=== PATIENT | female | born 1970 | race Caucasian/White ===

== ENCOUNTER → 2018-12-17 | Outpatient (CLI) | payer BC ==
[~2018-12-17] MED LIST: CETI10TA17 PO; CYCL10TA9 PO; IBP800T PO; OXYC-309 PO; PRD20T PO; TRIA16.5 NSEACH
--- NOTE | 2018-12-17 12:37 | Diagnostic Imaging Report ---
PROCEDURE: US Non-OB pelvis comp/trans. TECHNIQUE: Multiple realtime grayscale images were obtained of the pelvis in various projections endovaginally. Transabdominal imaging was also performed. INDICATION: Irregular menses. FINDINGS: The uterus measures 9.8 x 6.1 x 5.3 cm. Endometrium is 5 mm in thickness. Myometrium does show generalized heterogeneity. No discrete mass is seen. Right ovary measures 2.9 x 2.0 x 2.1 cm, and the left ovary measures 3.0 x 2.4 x 3.6 cm. No definite adnexal mass or free fluid is seen. IMPRESSION: Myometrial heterogeneity. This can be seen with adenomyosis or diffuse fibroids. No other significant abnormality is detected. Dictated by: Dictated on workstation # [id number]
--- NOTE | 2018-12-18 21:17 | Diagnostic Imaging Report ---
INDICATION: Routine screening. COMPARISON: Prior study from 09/01/2014 and 04/28/2013. EXAMINATION: 2D and 3D bilateral screening mammography was performed with CAD. The current study was also evaluated with a Computer Aided Detection (CAD) system. FINDINGS: Scattered fibroglandular densities are identified, bilaterally. The parenchymal pattern is stable. No mass or malignant appearing microcalcifications are seen. The axillae are unremarkable. IMPRESSION: No mammographic features suspicious for malignancy are identified. ACR BI-RADS Category 2: Benign findings. Result letter will be mailed to the patient. Note: At least 10% of breast cancer is not imaged by mammography. Dictated by: Dictated on workstation # [id number]
== END ==
LOC: RAD 10:17
PROVIDERS: ATTEND Obstetrics & Gynecology
DX: Z12.31 Encounter for screening mammogram for malignant neoplasm of breast (principal); N92.6 Irregular menstruation, unspecified; Z80.41 Family history of malignant neoplasm of ovary; Z68.42 Body mass index [BMI] 45.0-49.9, adult
CPT/HCPCS: 76830; 76856; 77067

== ENCOUNTER 2018-12-31 13:28 | Emergency (ER) | payer BC ==
[~2018-12-31] VITALS: Ht 165.1 cm; Wt 133.8 kg
--- NOTE | 2018-12-31 14:15 | NUR ---
Errol palacios in [facility] - 12/31/18 at 1416 by PMCCLURE TO ROOM COFFEE GIVEN
--- NOTE | 2018-12-31 14:16 | NUR ---
TO ROOM NO NEW C/O AT THIS TIME.
[2018-12-31] MEDS ORDERED: FAMOTIDINE 20 MG (PEPCID) TABLET PO STA (14:31)
--- NOTE | 2018-12-31 14:37 | ED Chest Pain ---
General Chief Complaint: Cardiac/General Problems Stated Complaint: HEART RATE ISSUES Nursing Triage Note: Patient advises that she has been experiencing her heart racing x 2 days accompanied with shortness of breath that has become progressively worse. She denies pain but states just uncomfortable. Nursing Sepsis Screen: No Definite Risk Source: patient, other Exam Limitations: no limitations History of Present Illness Date Seen by Provider: December 31, 2018 Time Seen by Provider: 14:21 Initial Comments The patient presents to ER by private conveyance with his significant other chief complaint that last night around 10:00 she had laid down to bed and started having some tightness pressure discomfort around under both breasts wrapping around towards her back. She does have some burping and feeling of distention. She ate dinner at 7:00. She said she just went to sleep did not take anything for it. In the morning when she woke up it was still there but not as bad. Progressively gotten worse the last hour or so so she decided to come and get checked out. No history of heart disease. She does have acid reflux but does not take anything for it routinely. No nausea or vomiting. No diarrhea or constipation. She had an gynecologic surgery years ago. No significant family history. She only occasionally smokes about a pack every 2 weeks. Drinks on weekends and denies recreational drug use. She used to have high blood pressure problems but in the past several years Dr. Arevalo has not had her medicines. She had a cholesterol normal. She is prediabetic. Allergies and Home Medications Allergies Coded Allergies: hydrocodone (Unverified Adverse Reaction, Unknown, HALLUCINATIONS, 12/31/18) Home Medications Cyclobenzaprine HCl 10 Mg Tablet, 10 MG PO Q8H PRN for SPASMS Prescribed by: NEFTALI DAY on 07/19/151748 Prednisone 20 Mg Tab, 40 MG PO DAILY Prescribed by: NEFTALI DAY on 07/19/151748 Patient Home Medication List Home Medication List Reviewed: Yes Review of Systems Review of Systems Constitutional: No chills, No diaphoresis EENTM: No Blurred Vision, No Double Vision Respiratory: Denies Cough, Denies Shortness of Air Cardiovascular: See HPI, Chest Pain; Denies Lightheadedness Gastrointestinal: Denies Diarrhea, Denies Nausea Genitourinary: Denies Burning, Denies Discharge Past Qppbfjk-Ribehd-Qrjmtf Hx Patient Social History Alcohol Use: Occasionally Uses Recreational Drug Use: No Smoking Status: Current Someday Smoker Type Used: Cigarettes Recent Foreign Travel: No Contact w/Someone Who Travel: No Recent Infectious Disease Expo: No Past Medical History Surgeries: Yes (FOOT SX X2 , BACK SX) Respiratory: No Cardiac: No Neurological: No 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 oz. 133.836653jc; BMI Method:Stated General Appearance: No Apparent Distress, WD/WN HEENT: PERRL/EOMI, TMs Normal, Normal ENT Inspection, Pharynx Normal, Moist Mucous Membranes Neck: Full Range of Motion, Normal Inspection, Non Tender, Supple Respiratory: Chest Non Tender, Lungs Clear, Normal Breath Sounds, No Accessory Muscle Use, No Respiratory Distress Cardiovascular: Regular Rate, Rhythm, No Edema, Normal Peripheral Pulses Gastrointestinal: Normal Bowel Sounds, Soft, Tenderness (mild epigastric tenderness) Extremity: Normal Capillary Refill, Normal Inspection Neurologic/Psychiatric: Alert, Oriented x3 Progress/Results/Core Measures Results/Orders Lab Results Laboratory Tests Test 12/31/18 13:54 12/31/18 16:28 Range/Units White Blood Count 8.2 4.3-11.0 10^3/uL Red Blood Count 4.55 4.35-5.85 10^6/uL Hemoglobin 14.0 11.5-16.0 G/DL Hematocrit 41 35-52 % Mean Corpuscular Volume 91 80-99 FL Mean Corpuscular Hemoglobin 31 25-34 PG Mean Corpuscular Hemoglobin Concent 34 32-36 G/DL Red Cell Distribution Width 13.5 10.0-14.5 % Platelet Count 223 130-400 10^3/uL Mean Platelet Volume 11.2 H 7.4-10.4 FL Neutrophils (%) (Auto) 62 42-75 % Lymphocytes (%) (Auto) 28 12-44 % Monocytes (%) (Auto) 6 0-12 % Eosinophils (%) (Auto) 4 0-10 % Basophils (%) (Auto) 1 0-10 % Neutrophils # (Auto) 5.0 1.8-7.8 X 10^3 Lymphocytes # (Auto) 2.3 1.0-4.0 X 10^3 Monocytes # (Auto) 0.5 0.0-1.0 X 10^3 Eosinophils # (Auto) 0.4 H 0.0-0.3 10^3/uL Basophils # (Auto) 0.1 0.0-0.1 10^3/uL Prothrombin Time 12.5 12.2-14.7 SEC INR Comment 0.9 0.8-1.4 Activated Partial Thromboplast Time 29 24-35 SEC Sodium Level 140 135-145 MMOL/L Potassium Level 3.9 3.6-5.0 MMOL/L Chloride Level 106 98-107 MMOL/L Carbon Dioxide Level 21 21-32 MMOL/L Anion Gap 13 5-14 MMOL/L Blood Urea Nitrogen 15 7-18 MG/DL Creatinine 0.92 0.60-1.30 MG/DL Estimat Glomerular Filtration Rate > 60 BUN/Creatinine Ratio 16 Glucose Level 117 H 70-105 MG/DL Calcium Level 9.1 8.5-10.1 MG/DL Corrected Calcium 9.2 8.5-10.1 MG/DL Magnesium Level 1.7 L 1.8-2.4 MG/DL Total Bilirubin 0.6 0.1-1.0 MG/DL Aspartate Amino Transf (AST/SGOT) 18 5-34 U/L Alanine Aminotransferase (ALT/SGPT) 23 0-55 U/L Alkaline Phosphatase 89 40-136 U/L Myoglobin 32.4 10.0-92.0 NG/ML Troponin I < 0.028 < 0.028 <0.028 NG/ML B-Type Natriuretic Peptide 45.0 <100.0 PG/ML Total Protein 7.1 6.4-8.2 GM/DL Albumin 3.9 3.2-4.5 GM/DL Lipase 22 8-78 U/L My Orders Orders - SHAILA MARTINEZ Cbc With Automated Diff (12/31/18 14:31) Magnesium (12/31/18 14:31) Chest 1 View, Ap/Pa Only (12/31/18 14:31) Ekg Tracing (12/31/18 14:31) Cardiac Profile 1 (12/31/18 14:31) Comprehensive Metabolic Panel (12/31/18 14:31) Myoglobin Serum (12/31/18 14:31) Protime With Inr (12/31/18 14:31) Partial Thromboplastin Time (12/31/18 14:31) O2 (12/31/18 14:31) Monitor-Rhythm Ecg Trace Only (12/31/18 14:31) Lipid Panel (01/01/19 06:00) Ed Iv/Invasive Line Start (12/31/18 14:31) Lipase (12/31/18 14:31) BNP (12/31/18 14:31) Aspirin Chewable Tablet (Baby Aspirin Ch (12/31/18 14:45) Lidocaine 2% Viscous 15 Ml (Xylocaine Vi (12/31/18 14:45) Famotidine Tablet (Pepcid Tablet) (12/31/18 14:31) Antacid Suspension (Mylanta Suspension (12/31/18 14:45) Troponin I (12/31/18 16:14) Medications Given in ED Current Medications Medications Dose Ordered Sig/Anshu Route Start Time Stop Time Status Last Admin Dose Admin Al Hydrox/Mg Hydrox/Simethicone 30 ml ONCE ONCE PO 12/31/18 14:45 12/31/18 14:46 DC 12/31/18 15:07 30 ML Aspirin 324 mg ONCE ONCE PO 12/31/18 14:45 12/31/18 14:46 DC 12/31/18 15:06 324 MG Lidocaine HCl 15 ml ONCE ONCE PO 12/31/18 14:45 12/31/18 14:46 DC 12/31/18 15:07 15 ML Vital Signs/I&O 12/31/18 13:56 Pulse 84 Resp 18 B/P (MAP) 142/93 (109) Pulse Ox 99 O2 Delivery Room Air Blood Pressure Mean: 109 Progress Progress Note : Time: 17:49 Progress Note Suspect Some Underlying Dysrhythmia Never Showed up on the Patient Was on Telemetry. The Delta Troponin Was Still Negative. EKG Unchanged. We Will Have Her Follow-Up with Dr. Harkins. Initial ECG Impression Date: December 31, 2018 Initial ECG Impression Time: 13:51 Initial ECG Rate: 78 Initial ECG Rhythm: Normal Sinus Initial ECG Intervals: Normal Initial ECG Impression: Normal Initial ECG Comparisson: No Previous ECG Available Comment No ST elevation or depression. Diagnostic Imaging Diagonstic Imaging: Xray Plain Films/CT/US/NM/MRI: chest Comments NAME: VAUGHN REILLY [facility] REC#: [id number] PHYSICIAN: SHAILA MARTINEZ MD CC: SVETLANA OBRIEN MD; SHAILA MARTINEZ Page 1 of 1 RADIOLOGY REPORT [facility] [place] [place] CC: SVETLANA OBRIEN MD; SHAILA MARTINEZ Page 1 of 1 RADIOLOGY REPORT NAME: VAUGHN REILLY [facility] REC#: [id number] PT STATUS: REG ER : 1970 PHYSICIAN: SHAILA MARTINEZ MD ADMIT DATE: 12/31/18/ER Signed Date of Exam: 12/31/18 CHEST 1 VIEW, AP/PA ONLY INDICATION: Tachycardia and shortness of breath. Frontal chest obtained at 03:16 p.m. There is no prior study for comparison. Heart is normal in size. Mediastinal silhouette appears unremarkable. The lungs are clear. There is no pneumothorax or pleural fluid. IMPRESSION: No acute process in the chest. Dictated by: Dictated on workstation # [id number] Dict: 12/31/18 1535 Trans: 12/31/18 1601 Interpreted by: SVETLANA OBRIEN MD Electronically signed by: SVETLANA OBRIEN MD 12/31/18 1601 Reviewed: Reviewed by Me Departure Impression Primary Impression: Rapid palpitations Additional Impression: Chest tightness or pressure Disposition: 01 HOME, SELF-CARE Condition: Stable Departure-Patient Inst. Decision time for Depature: 17:51 Referrals: OLAYINKA HARKINS MD, JOHN D MD (PCP/Family) Primary Care Physician Patient Instructions: Palpitations Add. Discharge Instructions: Call Dr. Harkins's clinic tomorrow and request an appointment this week or early next week. If your palpitations return and do not go away or accompanied by chest pain, chest pressure, sweats nausea or other worrisome symptoms please return to the nearest ER. All discharge instructions reviewed with patient and/or family. Voiced understanding. Copy Copies To 1: OLAYINKA HARKINS MD, TITUS J December 31, 2018 14:36
[2018-12-31 14:39] LABS: BASOPHILS # (AUTO) 0.1 10^3/uL (0.0-0.1); BASOPHILS % (AUTO) 1 % (0-10); EOSINOPHILS # (AUTO) 0.4 10^3/uL (0.0-0.3); EOSINOPHILS % (AUTO) 4 % (0-10); HEMATOCRIT 41 % (35-52); LYMPHOCYTES # (AUTO) 2.3 X 10^3 (1.0-4.0); LYMPHOCYTES % (AUTO) 28 % (12-44); MEAN CORPUSCULAR HEMOGLOBIN 31 PG (25-34); MEAN CORPUSCULAR HGB CONC 34 G/DL (32-36); MEAN CORPUSCULAR VOLUME 91 FL (80-99); MEAN PLATELET VOLUME 11.2 FL (7.4-10.4); MONOCYTES # (AUTO) 0.5 X 10^3 (0.0-1.0); MONOCYTES % (AUTO) 6 % (0-12); NEUTROPHILS % (AUTO) 62 % (42-75); PLATELET COUNT 223 10^3/uL (130-400); RED CELL DISTRIBUTION WIDTH 13.5 % (10.0-14.5); WHITE BLOOD COUNT 8.2 10^3/uL (4.3-11.0)
[2018-12-31] MEDS ORDERED: LIDOCAINE 2% VISCOUS 15 ML UDC PO ONE (14:45)
[2018-12-31] MEDS ORDERED: ASPIRIN 81 MG CHEW (CHILDREN'S ASA) PO ONE (14:45)
[2018-12-31] MEDS ORDERED: ANTACID SUSP 30 ML UDC (MYLANTA) PO ONE (14:45)
[2018-12-31 14:51] LABS: ALANINE AMINOTRANSFERASE 23 U/L (0-55); ALBUMIN 3.9 GM/DL (3.2-4.5); ALKALINE PHOSPHATASE 89 U/L (40-136); BILIRUBIN,TOTAL 0.6 MG/DL (0.1-1.0); BUN/CREATININE RATIO 16; CALCIUM 9.1 MG/DL (8.5-10.1); CARBON DIOXIDE 21 MMOL/L (21-32); CHLORIDE 106 MMOL/L (98-107); CREATININE SERUM 0.92 MG/DL (0.60-1.30); GFR ESTIMATED > 60; GLUCOSE 117 MG/DL (70-105); LIPASE 22 U/L (8-78); MAGNESIUM 1.7 MG/DL (1.8-2.4); POTASSIUM 3.9 MMOL/L (3.6-5.0); SODIUM 140 MMOL/L (135-145); TOTAL PROTEIN 7.1 GM/DL (6.4-8.2)
[2018-12-31 14:59] LABS: INR 0.9 (0.8-1.4); PROTHROMBIN TIME PATIENT 12.5 SEC (12.2-14.7)
--- NOTE | 2018-12-31 15:39 | Diagnostic Imaging Report ---
INDICATION: Tachycardia and shortness of breath. Frontal chest obtained at 03:16 p.m. There is no prior study for comparison. Heart is normal in size. Mediastinal silhouette appears unremarkable. The lungs are clear. There is no pneumothorax or pleural fluid. IMPRESSION: No acute process in the chest. Dictated by: Dictated on workstation # [id number]
--- NOTE | 2018-12-31 17:02 | NUR ---
TO ROOM NO NEW C/O
[2018-12-31 17:59] VITALS: BP 149/93
== END 2018-12-31 18:05 | disposition home or self-care (01) ==
LOC: EDUNIT# 13:28 → ER 13:29
DX: R00.2 Palpitations (principal); R07.89 Other chest pain; K21.9 Gastro-esophageal reflux disease without esophagitis; F17.210 Nicotine dependence, cigarettes, uncomplicated; Z88.5 Allergy status to narcotic agent
CPT/HCPCS: 36415; 71045; 80053; 83690; 83735; 83874; 83880; 84484; 85025; 85610; 85730; 93005; 93041

== ENCOUNTER 2019-01-21 05:41 | Outpatient (CLI) | payer BC ==
[~2019-01-21] VITALS: Ht 165.1 cm; Wt 133.8 kg
[2019-01-21] MEDS ORDERED: CETI10TA17 PO (14:42)
[2019-01-21] MEDS ORDERED: FLUT9.9S NS (14:42)
[2019-01-21] MEDS ORDERED: METO-351 PO (14:42)
== END 2019-01-21 15:11 | disposition home or self-care (01) ==
LOC: PREOP 05:41
PROVIDERS: ATTEND Obstetrics & Gynecology
DX: Z01.818 Encounter for other preprocedural examination (principal)

== ENCOUNTER → 2019-01-26 | Outpatient (CLI) | payer BC ==
[~2019-01-26] MED LIST changes: +CATHETER FLUSH 10 ML SYR IV PRN; +FLUT9.9S NS; +IBUP-1773 PO; +METO-351 PO
[2019-01-26 09:51] VITALS: BP 168/118
--- NOTE | 2019-01-27 09:23 | STRESS TEST ---
DATE OF SERVICE: 01/26/2019 EXERCISE MYOVIEW STRESS TEST REPORT REFERRING PHYSICIAN: . Baseline heart rate is 65, baseline blood pressure 116/118. Baseline EKG is sinus rhythm with no ischemic changes. In summary, the patient was injected with 9.9 mCi of technetium-99 Myoview and the resting images were obtained. Then, the patient started exercising with a baseline heart rate, blood pressure and EKG mentioned above. The patient was able to exercise for 4 minutes on standard [place] protocol. With peak exercise level, the patient was injected with 28.5 mCi of technetium-99 Myoview. She was having minimal nondiagnostic changes with [address] depression in II, III, aVF, V4, V5 and V6. Peak blood pressure was 212/114. During recovery, heart rate and blood pressure returned to baseline. EKG returned to baseline. The resting and stress images were reviewed and compared in the short axis, horizontal long axis, and vertical long axis views. Review of the images showed breast attenuation affecting the quality of the images. There is reversible ischemia involving the mid to apical anterior wall and anterolateral wall. SSS is 6, SDS 6, TID value 0.92. On the gated images, the left ventricle appeared to be normal size with normal contractility. Calculated ejection fraction 56%. CONCLUSION: 1. Fair exercise tolerance, a total of 4 minutes on standard [place] protocol, total of 5.8 METS achieving 87% of maximum expected heart rate. 2. Nondiagnostic EKG changes with exercise returned to baseline during recovery. 3. Severe hypertensive response to exercise with peak blood pressure 212/114. 4. Breast attenuation with reversible ischemia involving the mid to apical anterior wall and anterolateral wall. 5. Normal left ventricular size with normal contractility. Calculated ejection fraction 56%. Job ID: [id number] DocumentID: [id number] Dictated Date: 01/27/2019 08:47:53 Machine Feed Operator Date: 01/27/2019 09:22:31 Dictated By: OLAYINKA ROSA MD
== END ==
LOC: CARD 08:10
PROVIDERS: ATTEND Internal Medicine Cardiovascular Disease
DX: R00.2 Palpitations (principal); I10 Essential (primary) hypertension; I47.1 Supraventricular tachycardia; I07.1 Rheumatic tricuspid insufficiency
CPT/HCPCS: 78452; 93017; 93306

== ENCOUNTER 2019-04-15 08:11 | Day surgery (SDC) | payer BC ==
[2019-04-15] VITALS (9 sets, daily range): BP systolic 125–164; BP diastolic 87–108
[~2019-04-15] VITALS: Ht 165.1 cm; Wt 136.1 kg
[~2019-04-15 08:11] MED LIST changes: -CATHETER FLUSH 10 ML SYR IV PRN; +HEParin (CATH LAB) 2,000 ML IV ONE; +LIDOCAINE 1% INJ 20 ML 20 ML VIAL ONE; +NS IV 1000 ML 1,000 ML ONE
[2019-04-15] MEDS ORDERED: NS IV 1000 ML 1,000 ML IV SCH ×2 (08:30→10:40)
[2019-04-15 08:39] LABS: BILIRUBIN,URINE NEGATIVE (NEGATIVE); CLARITY,URINE CLEAR; COLOR,URINE YELLOW; GLUCOSE, URINE (UA) NEGATIVE (NEGATIVE); KETONES,URINE NEGATIVE (NEGATIVE); LEUKOCYTE ESTERASE ,URINE 1+ (NEGATIVE); NITRITE,URINE NEGATIVE (NEGATIVE); PH,URINE 6 (5-9); PROTEIN,URINE NEGATIVE (NEGATIVE); UROBILINOGEN,URINE NORMAL (NORMAL)
[2019-04-15 08:39] LABS: HEMOGLOBIN 12.8 G/DL (11.5-16.0); MEAN PLATELET VOLUME 10.7 FL (7.4-10.4)
[2019-04-15] MEDS ORDERED: LOPE2TAB34 PO (08:49)
[2019-04-15] MEDS ORDERED: ASPI-992 PO (08:49)
[2019-04-15] MEDS ORDERED: NAPH30DR5 OP (08:49)
[2019-04-15 08:52] LABS: INR 0.9 (0.8-1.4); PROTHROMBIN TIME PATIENT 12.8 SEC (12.2-14.7)
[2019-04-15 08:56] LABS: BACTERIA,URINE FEW /HPF
[2019-04-15 09:01] LABS: ALANINE AMINOTRANSFERASE 16 U/L (0-55); ALBUMIN 3.9 GM/DL (3.2-4.5); ALKALINE PHOSPHATASE 97 U/L (40-136); BILIRUBIN,TOTAL 0.5 MG/DL (0.1-1.0); BUN/CREATININE RATIO 12; CALCIUM 8.7 MG/DL (8.5-10.1); CARBON DIOXIDE 26 MMOL/L (21-32); CHLORIDE 106 MMOL/L (98-107); CHOLESTEROL 212 MG/DL (< 200); CREATININE SERUM 0.77 MG/DL (0.60-1.30); GFR ESTIMATED > 60; GLUCOSE 102 MG/DL (70-105); HDL CHOLESTEROL 56 MG/DL (40-60); POTASSIUM 4.2 MMOL/L (3.6-5.0); SODIUM 140 MMOL/L (135-145); TOTAL PROTEIN 7.1 GM/DL (6.4-8.2); TRIGLYCERIDES 182 MG/DL (<150); VLDL CHOLESTEROL 36 MG/DL (5-40)
--- NOTE | 2019-04-15 09:05 | Diagnostic Imaging Report ---
INDICATION: Abnormal stress exam, chest pain, dyspnea COMPARISON: 12/31/2018 TECHNIQUE: Single frontal radiograph of the chest dated 04/15/2019. FINDINGS: The cardiac silhouette is within normal limits in size. No significant pulmonary vascular congestion. The lungs are clear. No pleural effusion. No pneumothorax. No acute osseous abnormality. IMPRESSION: Stable examination without acute cardiopulmonary abnormality. Dictated by: Dictated on workstation # [id number]
--- NOTE | 2019-04-15 09:23 | Cardiac Procedure Note-CS/ASA ---
Pre-Procedure Note Pre-Op Procedure Note H&P Reviewed The H&P was reviewed, patient examined and no changes noted. Date H&P Reviewed: Apr 15, 2019 Time H&P Reviewed: 09:22 Conscious Sedation Pre-Proced Time 09:22 ASA Score 3 For ASA 3 and 4: Consider anesthesia and medical clearance. Also, for patients with a history of failed moderate sedation consider anesthesia. Airway Lungs Heart ASA score ASA 1: a normal healthy patient ASA 2: a patient with a mild systemic disease (mid diabetes, controlled hypertension, obesity X ASA 3: a patient with a severe systemic disease that limits activity (angina, COPD, prior Myocardial infarction) ASA 4: a patient with an incapacitating disease that is a constant threat to life (CHF, renal failure) ASA 5: a moribund patient not expected to survive 24 hrs. (ruptured aneurysm) ASA 6: a declared brain- patient whose organs are being harvested. For emergent operations, add the letter E after the classification Mallampati Classification Grade 3 Sedation Plan Analgesia, Amnesia, Plan communicated to team members, Discussed options with patient/fam, Discussed risks with patient/fam The patient is an appropriate candidate to undergo the planned procedure, sedation, and anesthesia. The patient immediately re-assessed prior to indication. OLAYINKA ROSA MD Apr 15, 2019 09:22
[2019-04-15] MEDS ORDERED: MIDAZOLAM 5 MG/5 ML (VERSED) VIAL ONE (09:58)
[2019-04-15] MEDS ORDERED: HEParin 1000 UNIT/ML (10ML VIAL) FOR BOLUS ONE (09:58)
[2019-04-15] MEDS ORDERED: fentaNYL INJECTION 100 MCG/2 ML AMP ONE (09:58)
[2019-04-15] MEDS ORDERED: VERAPAMIL 5 MG/2 ML (CALAN) VIAL IV ONE (09:58)
[2019-04-15] MEDS ORDERED: NITRO DRIP 25000 MCG/D5W 250 ML IV ONE (09:59)
--- NOTE | 2019-04-15 10:01 | NUR ---
SPOKE WITH PT TO COMPLETE THE MED REC. THE PT DOES NOT USE ANY PRESCRIPTION MEDICATIONS. THE MED LIST IN HER CHART SHOWED BYSTOLIC BUT SHE SAYS SHE DIDNT REALLY TAKE IT. OTC MEDS: CETIRIZINE 10M DAILY FLONASE: UD IBUPROFEN 600M TAB Q 6 H PRN EXCEDRIN: 2 TABS Q 8 H PRN LOPERAMIDE 2MG: UD CLEAR EYES: 2 DROPS BOTH EYES DAILY PRN
--- NOTE | 2019-04-15 10:43 | Discharge Inst-Post CATH ---
Discharge Inst-CATH/EP Problems Reviewed?: Yes Post Cardiac Cath/EP D/C Inst Follow Up/Plan Appointment with Dr. Harkins's office in 2-4 weeks <b>CARDIAC CATH/EP PROCEDURE DISCHARGE INSTRUCTIONS</b> ACTIVITY * Go Home directly and rest. * Limit activity of the leg (or wrist if it was used) for 7 days including aerobics, swimming, jogging, bicycling, etc. * Restrict stair-climbing for 7 days if possible, if not, climb up with your non-cath leg, then bring together on the same step. * Avoid lifting, pushing, pulling or excessive movement of the affected extremity for 7 days. * Customary sexual activity may be resumed after 2 days-use caution not to use a position that strains or causes pain to the affected extremity. * No driving for 24 hours. * NO SMOKING. * Avoid straining for bowel movements for 7 days. * Gentle walking on level ground is allowed. * Returning to work will depend on the type of procedure and the results. Your doctor will discuss this with you. CALL YOUR DOCTOR FOR ANY OF THE FOLLOWING: *If bleeding from the puncture site occurs- Apply gentle pressure to site with clean cloth and call your doctor or EMS. * If a knot or lump forms under the skin, increases in size, or causes pain. * If bruising appears to be worsening or moving further down your leg instead of disappearing. * Temperature above 101 F. CARE OF YOUR GROIN INCISION; * Bruising or purple discoloration of the skin near the puncture site is common. * You may shower only, no bathtub bathing for 5 days. Be careful to avoid slipping as your leg may feel stiff. * If a closure device was used on your femoral artery, please see the attached guide regarding care of the device and your leg. * Leave dressing on FOR 24 hours. CARE OF YOUR WRIST INCISION; * Bruising or purple discoloration of the skin near the puncture site is common. * You may shower. * DO NOT submerge wrist. * Leave dressing on FOR 24 hours. OLAYINKA HARKINS MD Apr 15, 2019 10:43
--- NOTE | 2019-04-15 10:48 | Cardiac Cath Report ---
Cardiac Cath Report Physician (s)/Nitrocellulose Operator (s) Physician OLAYINKA ROSA MD Pre-Procedure Diagnosis Pre-Procedure Diagnosis: coronary artery disease Post-Procedure Note Procedure Start Date: Apr 15, 2019 Name of Procedure: left heart catheterization Findings/Procedure Note PROCEDURE NOTE: 48 years old lady with hypertension, hyperlipidemia, had an abnormal stress test, has been having chest pain, scheduled for cardiac catheterization possible PTCA. After explaining the procedure to the patient, all pros and cons were explained, all questions were answered. The patient signed the consent and then she was placed on the cardiac catheterization laboratory. Groin was prepped SL fashion local anesthesia was used. Sheath placed in the Right radial artery, [place] ascatheter advanced to the left ventricular Ventricular gram was done, pulled to the left main system and left coronary angiogram was done, exchanged over long J-wire into 5 [place] right catheter and advanced to the right coronary system and angiogram was done At the end of the procedure the sheath was removed. vascular band was used FINDINGS: Hemodynamics LV 128/12, end-diastolic pressure of 12 Aorta 106/74 mean of 87 ANATOMY: Left Main is free of obstructive Left Anterior Descending has mild tortuosity with mild disease nonobstructive disease Left Circumflex has mild tortuosity with no significant obstructive disease Right Coronory Artery is dominant artery with mild disease nonobstructive disease LV Gram was done showing normal left ventricular size and systolic function and ejection fraction 60 percent Aorta CONCLUSION: 1. Mild coronary artery disease nonobstructive disease 2. Normal left ventricular size and systolic function test and ejection fraction 60 percent DISCUSSION AND RECOMMENDATION: continue to maximize medical therapy. No intervention is needed Anesthesia Type: Conscious Sedation Estimated blood loss (mL): 10 ml Contrast Amount: 50 ml Total Radiation Dose: 502 mGy Post-Procedure Diagnosis Post-operative diagnosis: Chest pain Coronary artery disease Hypertension Hyperlipidemia OLAYINKA ROSA MD Apr 15, 2019 10:48
== END 2019-04-15 13:10 | disposition home or self-care (01) ==
LOC: CATH 08:11 → SDC 10:55 → CATH 13:10
PROVIDERS: ATTEND Internal Medicine Cardiovascular Disease
DX: I25.10 Atherosclerotic heart disease of native coronary artery without angina pectoris (principal); I10 Essential (primary) hypertension; E78.5 Hyperlipidemia, unspecified; I47.1 Supraventricular tachycardia; E66.01 Morbid (severe) obesity due to excess calories; J30.2 Other seasonal allergic rhinitis; F17.210 Nicotine dependence, cigarettes, uncomplicated; Z88.8 Allergy status to other drugs, medicaments and biological substances; Z83.3 Family history of diabetes mellitus; Z82.49 Family history of ischemic heart disease and other diseases of the circulatory system; Z82.5 Family history of asthma and other chronic lower respiratory diseases; Z80.3 Family history of malignant neoplasm of breast; Z82.3 Family history of stroke; Z80.41 Family history of malignant neoplasm of ovary
CPT/HCPCS: 36415; 71045; 80053; 80061; 81000; 84703; 85027; 85610; 85730; 87081; 87088; 93458

== ENCOUNTER 2019-06-06 09:52 | Emergency (ER) | payer BC ==
[~2019-06-06] VITALS: Ht 165.1 cm; Wt 136.3 kg
[~2019-06-06 09:52] MED LIST changes: +ASPI-992 PO; -HEParin (CATH LAB) 2,000 ML IV ONE; -LIDOCAINE 1% INJ 20 ML 20 ML VIAL ONE; +LOPE2TAB34 PO; +NAPH30DR5 OP; -NS IV 1000 ML 1,000 ML ONE
[2019-06-06] MEDS ORDERED: fentaNYL INJECTION 100 MCG/2 ML AMP IVP STA ×2 (10:03→11:00)
[2019-06-06] MEDS ORDERED: KETOROLAC 30 MG/ML VIAL IVP STA (10:03)
--- NOTE | 2019-06-06 10:23 | ED Fall/Injury ---
General Chief Complaint: Trauma-Non Activation Stated Complaint: L LEG PAIN Nursing Triage Note: ARRIVED VIA EMS FROM HOME. PT HAD A DEMOCRAT LAST NIGHT AND WAS DRINKING AND FELL IN HER CLOSET AT APPX 0200. COMPLAINS OF LEFT LOWER LEG PAIN. Source: patient, EMS Exam Limitations: no limitations History of Present Illness Date Seen by Provider: Jun 06, 2019 Time Seen by Provider: 09:54 Initial Comments Here by EMS with report of left lower extremity pain and deformity in the area of the distal tibia. She was apparently at home last night and had been drinking because they had a constitution party. She fell and her closet and injured her left lower leg. She was not really able to walk on it without assistance afterwards. Ultimately this morning it became worse and she called EMS who transported her here. Denies other injuries. Did not hit her head and there was no loss of consciousness. Occurred: this morning (0200) Severity: moderate Injuries/Pain Location: lower extremity Context: lost balance Loss of Consciousness: no loss of consciousness Modifying Factors: Improves With Immobilization; Worse With Movement Associated Symptoms (Fall): No Abdominal Pain, No Chest Pain, No Confusion, No Headache, No Neck Pain Allergies and Home Medications Allergies Coded Allergies: hydrocodone (Unverified Adverse Reaction, Intermediate, HALLUCINATIONS, 01/29/19) Home Medications Aspirin/Acetaminophen/Caffeine 1 Each Tablet, 2 EACH PO Q8H PRN for MIGRAINE, (Reported) Cetirizine HCl 10 Mg Tablet, 10 MG PO DAILY, (Reported) Fluticasone Propionate 9.9 Ml [place].susp, 1 SPRAY NS DAILY, (Reported) 1 SPRAY EACH NARE DAILY Ibuprofen 600 Mg Tablet, 600 MG PO Q6H Prescribed by: STORMY DEMARCO on 01/29/19 0926 Loperamide HCl 2 Mg Tablet, 2 MG PO UD PRN for DIARRHEA, (Reported) Naphazoline HCl/Glycerin 30 Ml Drops, 2 DROPS OP DAILY PRN for DRY EYES, (Reported) Patient Home Medication List Home Medication List Reviewed: Yes Review of Systems Review of Systems Constitutional: no symptoms reported Respiratory: no symptoms reported Cardiovascular: no symptoms reported Musculoskeletal: see HPI, joint pain, muscle pain Skin: change in color; No lesions Psychiatric/Neurological: No Symptoms Reported Past Wyrphzf-Juumbn-Fzgqom Hx Past Med/Social Hx: Reviewed Nursing Past Med/Soc Hx Patient Social History Alcohol Use: Occasionally Uses Recreational Drug Use: No Smoking Status: Never a Smoker Type Used: Cigarettes Former Smoker, Quit: Jan 21, 2015 2nd Hand Smoke Exposure: Yes Recent Foreign Travel: No Contact w/Someone Who Travel: No Recent Infectious Disease Expo: No Recent Hopitalizations: No Seasonal Allergies Seasonal Allergies: Yes Past Medical History Surgeries: Yes (FOOT SX X2 , BACK SX, D&C, HYSTEROSCOPY) Respiratory: No Currently Using CPAP: No Currently Using BIPAP: No Cardiac: Yes (TACHYCARDIA) Hypertension Neurological: No Reproductive Disorders: Yes (MASS IN UTERUS) Female Reproductive Disorders: Menstrual Problems Sexually Transmitted Disease: No HIV/AIDS: No Genitourinary: No Gastrointestinal: Yes Gastroesophageal Reflux Musculoskeletal: No Endocrine: No HEENT: Yes (GLASSES) Loss of Vision: Denies Hearing Impairment: Denies Cancer: No Psychosocial: No Integumentary: Yes (MILD) Eczema Blood Disorders: No Adverse Reaction/Blood Tranf: No (HAS HAD BLOOD WITH NO REACTION) Family Medical History Reviewed Nursing Family Hx No Pertinent Family Hx Physical Exam Vital Signs Vital Signs - First Documented 06/06/19 09:52 Temp 37.4 Pulse 86 Resp 16 B/P (MAP) 153/103 (120) Pulse Ox 95 O2 Delivery Room Air Capillary Refill : Less Than 3 Seconds Height, Weight, BMI Height: 5'5.00" Weight: 300lbs. 0.0oz. [id number]; 50.00 BMI Method:Stated General Appearance: WD/WN, no apparent distress Cardiovascular: regular rate, rhythm, no murmur Respiratory: lungs clear, normal breath sounds Gastrointestinal: non tender, soft Extremities: other (tenderness with swelling and deformity to the distal tibia proximal to the ankle by about 6-10 cm. Distal circulation and sensation intact I.) Neurologic/Psychiatric: alert, oriented x 3 Skin: normal color, warm/dry [place] Coma Score Best Eye Response: (4) Open Spontaneously Best Verbal Response: (5) Oriented Best Motor Response: (6) Obeys Commands Procedures/Interventions Splinting and Joint Reduction : Location: left lower extremity tib-fib fracture Pre-Proc Neuro Vasc Exam: normal Post-Proc Neuro Vasc Exam: normal Progress Left lower extremity bulky Young style splint placed using both posterior and stirrup splinting with plaster. Maintained good bone alignment. Distal neurovascular assessment intact pre-and post. Tolerated procedure well with no complications. Secured with multiple Guero wraps. Hand-Made Type: plaster Splint Application: Short Leg (L and U splint over bulky dressing.) Progress/Results/Core Measures Results/Orders My Orders Orders - NEFTALI DAY MD Tibia/Fibula, Left, 2 Views (06/06/19 10:03) Fentanyl Injection (Sublimaze Injection (06/06/19 10:03) Ketorolac Injection (Toradol Injection) (06/06/19 10:03) Fentanyl Injection (Sublimaze Injection (06/06/19 11:00) Tibia/Fibula, Left, 2 Views (06/06/19 11:35) Vital Signs/I&O 06/06/19 09:52 Temp 37.4 Pulse 86 Resp 16 B/P (MAP) 153/103 (120) Pulse Ox 95 O2 Delivery Room Air Blood Pressure Mean: 120 Progress Progress Note : Progress Note Seen and evaluated. X-ray left tib-fib. Fentanyl 50 g IV and Toradol 15 mg IV. Monitor patient. 1030: Preliminary read on the x-ray shows fracture of both the distal tibia and fibula without significant displacement. We will go ahead and get ankle 3 view as distal fibula fracture is just above the mortise. Monitor patient. 1133: Repeat fentanyl 75 g IV prior to splint placement. Splint placed without difficulty. Post reduction x-rays show continued good alignment of both tibia and fibula. Distal neurovascular assessment remains intact. I did discuss the case with [facility] in [facility] due to patient's concerns regarding pain control and inability to move about given her fracture. I did discuss the case with Dr. Davis, on-call for orthopedist. He states that this is likely not a surgical procedure at least until Saturday and patient may be di scharged home with pain medicines and follow-up, or if not tolerating, may be transferred for admission. I will re-discussed that with the patient. 1155: I have discussed all this with the patient and family and they are very concerned about her ability to be at home due to pain concerns and being able to transfer and move about. Apparently she has some difficulty with crutches. Given these concerns, I have rediscussed the case with [facility] in [facility] and they have accepted the patient for transfer ER to ER. I discussed the case with Dr. Tucker and he has accepted the patient for transfer. This was discussed with patient and family and they agree. Transfer by EMS. Diagnostic Imaging Diagonstic Imaging: Xray Plain Films/CT/US/NM/MRI: other Comments NAME: VAUGHN REILLY [facility] REC#: [id number] PT STATUS: REG ER : 1970 PHYSICIAN: NEFTALI DAY MD ADMIT DATE: 06/06/19/ER Signed Date of Exam: 06/06/19 TIBIA/FIBULA, LEFT, 2 VIEWS INDICATION: Trauma, left leg pain. 2 views of the left tibia and fibula were obtained. There is a comminuted fracture involving the distal shaft of the tibia with a butterfly fracture component present. There is less than 5 mm of displacement with no angulation seen. There is an oblique fracture of the distal fibula displaced less than 3 mm. The ankle joint is intact. The proximal tibia and fibula are intact. IMPRESSION: There are fractures of the distal shafts of the tibia and fibula which are in satisfactory alignment. Dictated by: Dictated on workstation # [id number] Dict: 06/06/19 1029 Trans: 06/06/19 1057 Interpreted by: NEERU WELDON MD Electronically signed by: NEERU WELDON MD 06/06/19 1057 Diagonstic Imaging: Xray Plain Films/CT/US/NM/MRI: other Comments [facility] [place] NAME: VAUGHN REILLY [facility] REC#: [id number] PT STATUS: REG ER : 1970 PHYSICIAN: NEFTALI DAY MD ADMIT DATE: 06/06/19/ER Draft Date of Exam:06/06/19 TIBIA/FIBULA, LEFT, 2 VIEWS Left tibia and fibula at 11:41. Indication: Fracture, neck pain. AP and lateral views were obtained. As noted on the exam performed earlier today at 10:19, there is a comminuted slightly displaced fracture of the distal 3rd of the tibia. The oblique slightly displaced fracture of the distal fibula seen previously is also again evident. The main fracture fragments of the distal fibula do seem in better alignment than on the prior exam. The tibial fracture fragments are essentially unchanged. There is now a plaster cast in place. Impression: The main fracture fragments in the distal fibula are in better alignment than noted on the prior study. The fracture fragments of the distal tibia are essentially no different. Dictated on workstation # [id number] Dict: 06/06/19 1147 Trans: 06/06/19 1152 [facility] [id number] Interpreted by: CHARLES WATTS MD Electronically signed by: Departure Impression Primary Impression: Tibia/fibula fracture, shaft Qualified Codes: S82.202A - Unspecified fracture of shaft of left tibia, initial encounter for closed fracture; S82.402A - Unspecified fracture of shaft of left fibula, initial encounter for closed fracture Disposition: XFER SHT-TRM HOSP Condition: Stable Transfer Transfer Reason: Diversion (orthopedics not available here) Time Spoke to Accepting Phy: 11:55 Transfer Facility: [place], [place], Dr. Tucker accepting Method of Transfer: EMS Departure-Patient Inst. Referrals: KATIE HU MD (PCP/Family) Primary Care Physician NEFTALI DAY MD Jun 06, 2019 10:23
--- NOTE | 2019-06-06 10:32 | Diagnostic Imaging Report ---
INDICATION: Trauma, left leg pain. 2 views of the left tibia and fibula were obtained. There is a comminuted fracture involving the distal shaft of the tibia with a butterfly fracture component present. There is less than 5 mm of displacement with no angulation seen. There is an oblique fracture of the distal fibula displaced less than 3 mm. The ankle joint is intact. The proximal tibia and fibula are intact. IMPRESSION: There are fractures of the distal shafts of the tibia and fibula which are in satisfactory alignment. Dictated by: Dictated on workstation # [id number]
--- NOTE | 2019-06-06 10:53 | NUR ---
IN TO TALK TO PT.
--- NOTE | 2019-06-06 10:54 | NUR ---
DR NOTIFIED PT WAS STILL HURTING.
--- NOTE | 2019-06-06 11:42 | NUR ---
DR IN ROOM WITH PT AT THIS TIME.
--- NOTE | 2019-06-06 11:53 | Diagnostic Imaging Report ---
Left tibia and fibula at 11:41. Indication: Fracture, neck pain. AP and lateral views were obtained. As noted on the exam performed earlier today at 10:19, there is a comminuted slightly displaced fracture of the distal 3rd of the tibia. The oblique slightly displaced fracture of the distal fibula seen previously is also again evident. The main fracture fragments of the distal fibula do seem in better alignment than on the prior exam. The tibial fracture fragments are essentially unchanged. There is now a plaster cast in place. Impression: The main fracture fragments in the distal fibula are in better alignment than noted on the prior study. The fracture fragments of the distal tibia are essentially no different. Dictated by: Dictated on workstation # [id number]
--- NOTE | 2019-06-06 12:02 | NUR ---
SHIFT CAPTAIN AND DISPATCH NOTIFIED.
[2019-06-06 12:43] VITALS: BP 145/94
== END 2019-06-06 12:43 | disposition short-term general hospital (02) ==
LOC: EDUNIT# 09:52 → ER 09:53
DX: S82.202A Unspecified fracture of shaft of left tibia, initial encounter for closed fracture (principal); S82.402A Unspecified fracture of shaft of left fibula, initial encounter for closed fracture; I10 Essential (primary) hypertension; K21.9 Gastro-esophageal reflux disease without esophagitis; Z88.5 Allergy status to narcotic agent; Z87.891 Personal history of nicotine dependence; Z79.82 Long term (current) use of aspirin; W18.39XA Other fall on same level, initial encounter; Y92.009 Unspecified place in unspecified non-institutional (private) residence as the place of occurrence of the external cause
CPT/HCPCS: 29515; 73590; 96374; 96375; 96376

== ENCOUNTER → 2020-01-08 | Outpatient (CLI) | payer BC ==
--- NOTE | 2020-01-08 17:34 | Diagnostic Imaging Report ---
PROCEDURE: US non-OB pelvis comp/trans. TECHNIQUE: Multiple, realtime grayscale images were obtained of the pelvis in various projections, endovaginally. Transabdominal imaging was also performed. INDICATION: Pelvic pain. FINDINGS: The uterus measures 9.8 x 5.9 x 6.9 cm with heterogeneous myometrial appearance possibly related to fibroid change. Endometrium is somewhat ill-defined but measures approximately 0.7 cm in thickness. Right ovary was not visualized. Left ovary measures 3.0 x 1.6 x 1.9 cm with internal blood flow. There is no evidence of adnexal mass or significant pelvic free fluid. IMPRESSION: Findings are suggestive of probable fibroid change in the myometrium without other pelvic abnormality detected. Dictated on workstation # [id number]
== END ==
LOC: RAD 15:05
PROVIDERS: ATTEND Obstetrics & Gynecology
DX: R10.2 Pelvic and perineal pain (principal)
CPT/HCPCS: 76830; 76856

== ENCOUNTER → 2020-02-02 | Outpatient (CLI) | payer BC ==
--- NOTE | 2020-02-02 09:22 | Diagnostic Imaging Report ---
INDICATION: Routine screening. Comparison is made with prior mammogram 12/17/2018 and 09/01/2014. 2-D and 3-D bilateral screening mammography was performed with CAD. Both breasts are heterogeneously dense, limiting the sensitivity of mammography. The parenchymal pattern is stable. No dominant mass or malignant appearing microcalcifications are seen. Axillae are unremarkable. IMPRESSION: BI-RADS Category 1 No mammographic features suspicious for malignancy are identified. ACR BI-RADS Category 1: Negative. Result letter will be mailed to the patient. Note: At least 10% of breast cancer is not imaged by mammography. Dictated by: Dictated on workstation # [id number]
== END ==
LOC: RAD 07:19
PROVIDERS: ATTEND Obstetrics & Gynecology
DX: Z12.31 Encounter for screening mammogram for malignant neoplasm of breast (principal)
CPT/HCPCS: 77063; 77067

== ENCOUNTER → 2020-05-13 | Outpatient (CLI) | payer BC | LOC: LABNPT 08:32 | PROVIDERS: ATTEND Internal Medicine | DX: R05 Cough (principal); R50.9 Fever, unspecified; R09.81 Nasal congestion; Z20.828 Contact with and (suspected) exposure to other viral communicable diseases | CPT/HCPCS: 87635 ==

== ENCOUNTER 2020-08-01 05:45 | Outpatient (RCR) | payer BC ==
[~2020-08-01] VITALS: Ht 165 cm; Wt 136.3 kg
[~2020-08-01 05:45] MED LIST changes: +ASCO500C17 PO; +CHOL100048 PO; +CLC600T PO; +UBID100C44 PO; +VITA1CAP PO; +ZINC50TA11 PO
== END 2020-08-01 11:02 | disposition home or self-care (01) ==
LOC: PREOP 05:45
PROVIDERS: ATTEND Podiatrist Foot & Ankle Surgery
DX: Z01.812 Encounter for preprocedural laboratory examination (principal); L98.9 Disorder of the skin and subcutaneous tissue, unspecified; Z20.828 Contact with and (suspected) exposure to other viral communicable diseases
CPT/HCPCS: 87635

== ENCOUNTER 2020-08-03 06:09 | Day surgery (SDC) | payer BC ==
[~2020-08-03] VITALS: Ht 165 cm; Wt 136.3 kg
[2020-08-03] VITALS (9 sets, daily range): BP systolic 137–165; BP diastolic 81–111
[2020-08-03] MEDS ORDERED: ceFAZolin INJECTION 1,000 MG in WATER (STERILE) FOR INJECTION 10 ML IV ONE (07:00)
[2020-08-03] MEDS ORDERED: LACTATED RINGERS 1,000 ML IV PRN (07:00)
[2020-08-03] MEDS ORDERED: MIDAZOLAM 2 MG/2 ML (VERSED) VIAL ONE (07:06)
[2020-08-03] MEDS ORDERED: fentaNYL INJECTION 100 MCG/2 ML AMP ONE (07:06)
[2020-08-03] MEDS ORDERED: BUPIVACAINE 0.5% 30 ML (SENSORCAINE) VIAL ONE (07:16)
[2020-08-03] MEDS ORDERED: LIDOCAINE 1% INJ 20 ML 20 ML VIAL ONE (07:16)
--- NOTE | 2020-08-03 07:50 | Progress Note-Pre Operative ---
Pre-Operative Progress Note H&P Reviewed The H&P was reviewed, patient examined and no changes noted. Date Seen by Provider: Aug 03, 2020 Time Seen by Provider: 07:49 Date H&P Reviewed: Aug 03, 2020 Time H&P Reviewed: 07:49 Pre-Operative Diagnosis: Soft Tissue Mass, Right Foot GEOFF SOOD DPM Aug 03, 2020 07:50
[2020-08-03] MEDS ORDERED: ONDANSETRON 4 MG/2 ML (SDV) Z0FRAN ONE (08:37)
[2020-08-03] MEDS ORDERED: SEVOFLURANE (ULTANE) 15 ML INHAL SOLN ONE (08:37)
[2020-08-03] MEDS ORDERED: proPOfol 200 MG/20 ML (DIPRIVAN) VIAL IV ONE (08:37)
[2020-08-03] MEDS ORDERED: LIDOCAINE PF 2% 5 ML (XYLOCAINE) VIAL ONE (08:37)
--- NOTE | 2020-08-03 08:49 | Progress Note-Post Operative ---
Post-Operative Progess Note Surgeon (s)/Deputy Chief Counsel (s) Surgeon GEOFF SOOD DPM Deputy Chief Counsel: none Pre-Operative Diagnosis Soft Tissue Mass, Right Foot Post-Operative Diagnosis Same Procedure & Operative Findings Date of Procedure 08/03/20 Procedure Performed/Findings Excision of Soft Tissue Mass, Right foot Anesthesia Type General Estimated Blood Loss Estimated blood loss (mL): Minimal Specimens/Packing Specimens Removed Soft Tissue Mass, right foot Packing: None GEOFF SOOD DPM Aug 03, 2020 08:49
[2020-08-03] MEDS ORDERED: TRM50T PO (08:55)
[2020-08-03] MEDS ORDERED: MEPERIDINE (DEMEROL) INJ 50 MG/ML IVP ONE (09:00)
[2020-08-03] MEDS ORDERED: fentaNYL INJECTION 100 MCG/2 ML AMP IVP ONE (09:00)
[2020-08-03] MEDS ORDERED: LACTATED RINGERS 1,000 ML IV SCH (09:00)
[2020-08-03] MEDS ORDERED: ONDANSETRON 4 MG/2 ML (SDV) Z0FRAN IVP PRN (09:00)
--- NOTE | 2020-08-03 11:01 | Physical Therapy Ortho Eval ---
PT Orthopedic Evaluation Type of Surgery soft tissue mass removal right foot Prior Level of Function Current Living Status: Significant Other Locomotion (Upon Admit): Independent Established Durable Medical Eq: Front Wheeled Walker Subjective Subjective Patient in bed pre tx, agrees to PT, has no complaints of pain. Patient is aware that she is NWB on the right foot but can bear some weight on right heel for balance. Entry Into Home: Stairs Without Railing Steps Into Home: 1 Motor Control Motor Control: Motor Control WNL ROM ROM: WFL Transfer SCALE: Activities may be completed with or without assistive devices. 3-Dtrrrnnmxm-owbbujz completes the activity by him/herself with no assistance from a helper. 5-Set-up or Clean-up Assistance-helper sets up or cleans up; patient completes activity. Rydal assists only prior to or following the activity. 4-Supervision or Touching Assistance-helper provides verbal cues and/or touching/steadying and/or contact guard assistance as patient completes activity. Assistance may be provided throughout the activity or intermittently. 3-Partial/Moderate Assistance-helper does LESS THAN HALF the effort. Rydal lifts, holds or supports trunk or limbs, but provides less than half the effort. 2-Substantial/Maximal Assistance-helper does MORE THAN HALF the effort. Rydal lifts or holds trunk or limbs and provides more than half the effort. 9-Sbirpoxqk-kuayqi does ALL the effort. Patient does none of the effort to complete the activity. Or, the assistance of 2 or more helpers is required for the patient to complete the activity. If activity was not attempted, code reason: 7-Patient Refused. 9-Not Applicable-not attempted and the patient did not perform the activity before the current illness, exacerbation or injury. 10-Not Attempted due to Environmental Limitations-(lack of equipment, weather restraints, etc.). 88-Not Attempted due to Medical Conditions or Safety Concerns. Transfers (B, C, W/C) (QC): 4 Gait Right Lower Extremity: Right Weight Bearing Status RLE: Non Weight Bearing Left Lower Extremity: Left Weight Bearing Status LLE: Full Weight Bearing Summary/Comments Patient ambulated 70' with a rolling walker with CGA, light pressure on right heel during ambulation, occasionally puts too much weight through right foot. Patient also went up and down 1 step using a rolling walker with CGA and cues for foot placement. Treatment Rendered Treatment: Therapeutic Exercises, Gait Train, Step Train Exercise Instruction: Quad Sets, Heel Slides, Ankle Pumps Assessment/Goals Goal Time Frame: 1 Visit Understands HEP: Yes Safe Ambulation: Yes Plan Treatment Plan: Discharge PT/Family Agrees to Plan: Yes Time Time In: 1015 Time Out: 1025 Total Billed Treatment Time: 10 Billed Treatment Time 1 visit EVL ARAM HUIZAR PT Aug 03, 2020 11:01
--- NOTE | 2020-08-03 12:34 | OPERATIVE REPORT ---
DATE OF SERVICE: 08/03/2020 SURGEON: Patricia Sood DPM. PREOPERATIVE DIAGNOSIS: Soft tissue lesion, right foot. POSTOPERATIVE DIAGNOSIS: Soft tissue lesion, right foot. PROCEDURE: Excision of soft tissue lesion, right forefoot. WOUND CLASS: Clean. ANESTHESIA: General. HEMOSTASIS: Pneumatic ankle tourniquet at 250 mmHg. INDICATIONS: This 50-year-old female presents complaining of a chronic lesion to her right forefoot is painful to walk on. Conservative therapy is met with unsatisfactory results and the patient is agreeable to surgical intervention after risks and complications were discussed at length. No guarantees were extended to the patient and she is willing to proceed. DESCRIPTION OF PROCEDURE: The patient was brought back to the operating table, placed in secure supine position. Appropriate timeout was performed. A pneumatic ankle tourniquet was placed on the right lower extremity over several layers of padding. Local anesthetic was administered under aseptic technique, which included 10 mL of 1:1 mixture of 1% Xylocaine, 0.5% Marcaine, half of which was introduced into the tibial nerve for an ankle block with great care not to infiltrate blood vessels on the right lower extremity. The remainder of the local anesthetic at this time was administered just proximal to the lesion of the plantar right forefoot. The right foot was then prepped and draped in normal sterile manner. The right foot was then elevated, allowed to exsanguinate after which the tourniquet was inflated to 250 mmHg. Attention was then directed to the plantar aspect of the right forefoot where a 2.5 cm longitudinal linear incision was created in between the second and third metatarsal head area. The incision was deepened down to the subcutaneous tissue where encapsulated mass was identified. A combination of blunt and sharp dissection was performed removing lesion that was approximately 2 cm in length and 1.5 cm in width. This soft tissue lesion was sent for gross and microscopic evaluation. The lesion extended down to the metatarsal head area into deep tissue. No other abnormalities were identified; however, at this time. The wound was flushed with copious amounts of normal saline. The tourniquet was dropped, and active bleeders were cauterized. The tourniquet was then reinflated after which the area was thoroughly flushed once again with normal saline. Closure was then performed in layers. Deep closure was performed with 3-0 Vicryl, superficial with 4-0 Vicryl, skin closure with 4-0 Prolene in a simple interrupted type stitch. Tourniquet was dropped at this time noting appropriate cap refill time to all digits of the right foot. Postoperative dressing consisted of Betadine-soaked Adaptic, sterile 4 x 4, sterile Kerlix all secured with a Coban wrap. The patient tolerated the anesthesia and procedure well, was transported from the operating room to the recovery area with vital signs stable and vascular status intact to all digits of the right foot. She is to be nonweightbearing on the right lower extremity. Prescription for tramadol was given to the patient and she is to keep the dressing dry, clean and intact. We will see her back in the office in 10 days' period of time or sooner if necessary. Job ID: [id number] DocumentID: [id number] Dictated Date: 08/03/2020 09:01:14 Counter Hand Date: 08/03/2020 12:33:41 Dictated By: PATRICIA SOOD DPM
== END 2020-08-03 10:35 | disposition home or self-care (01) ==
LOC: SDC 06:09
PROVIDERS: ATTEND Podiatrist Foot & Ankle Surgery
DX: L72.0 Epidermal cyst (principal); M79.89 Other specified soft tissue disorders; I10 Essential (primary) hypertension; E66.9 Obesity, unspecified; Z68.43 Body mass index [BMI] 50.0-59.9, adult; Z79.899 Other long term (current) drug therapy; Z88.5 Allergy status to narcotic agent
CPT/HCPCS: 84703; 87081; 88304

== ENCOUNTER 2020-12-08 05:35 | Outpatient (CLI) | payer BC ==
[~2020-12-08] VITALS: Ht 165.1 cm; Wt 143.5 kg
[~2020-12-08 05:35] MED LIST changes: +CALC600T91 PO; -CLC600T PO; +TRM50T PO
[2020-12-08] MEDS ORDERED: MULT-1136 PO (10:25)
== END 2020-12-08 11:13 | disposition home or self-care (01) ==
LOC: PREOP 05:35
PROVIDERS: ATTEND Internal Medicine
DX: Z01.818 Encounter for other preprocedural examination (principal)

== ENCOUNTER → 2020-12-16 | Day surgery (SDC) | payer BC ==
--- NOTE | 2020-12-04 04:58 | HISTORY AND PHYSICAL ---
DATE OF SERVICE: COLONOSCOPY HISTORY AND PHYSICAL REFERRING PHYSICIAN: Dr. Arevalo. HISTORY OF PRESENT ILLNESS: The patient is a 50-year-old white female being referred for screening colonoscopy. She has noted no bright red blood per rectum, melena or abdominal pain. She is not aware of any family history for colon cancer. She is deemed to be of higher than average risk as opposed to average risk due to family history of rectal cancer in her mother. PAST MEDICAL HISTORY: Seasonal allergies. MEDICATIONS: Her only medications are allergy medication, Zyrtec and Flonase. PAST SURGICAL HISTORY: Significant for foot surgery per Dr. Alves. She underwent endometrial ablation per Dr. Grady, a number of years ago without complication. SOCIAL HISTORY: Reports occasional alcohol use. Previous 31-xloq-oscb smoking history, but quit in 08/2012. FAMILY HISTORY: Does have brother with heart disease diagnosed in his 60s and a sister with heart disease diagnosed in her 60s. Mother had diabetes, also reported history of rectal cancer REVIEW OF SYSTEMS: CONSTITUTIONAL: The patient denies change in weight, night sweats, chills or fever. GASTROINTESTINAL: As per HPI. PULMONARY: The patient denies cough, wheezing or shortness of breath. CARDIOVASCULAR: The patient denies chest pain, orthopnea, PND, syncope or presyncope. PHYSICAL EXAMINATION: GENERAL: Reveals a pleasant overweight white female, in no acute distress, weighing 313 pounds. VITAL SIGNS: Blood pressure 142/80. HEENT: Unremarkable. Sclerae nonicteric. CHEST: Clear to auscultation. CARDIOVASCULAR: Revealed a regular rate and rhythm without murmur, S3 or S4. ABDOMEN: Soft, supple without mass, organomegaly or tenderness. EXTREMITIES: Reveal trace edema bilaterally without cyanosis or clubbing. ASSESSMENT AND PLAN: The patient is set up for colonoscopy with reported Positive family history for rectal cancer in her mother, she believes diagnosed in her late 60s. Prep instructions with the Suprep kit were given and questions were answered. I thank you for the referral of this pleasant lady. Job ID: [id number] DocumentID: [id number] Dictated Date: 11/30/2020 16:47:33 Balance Wheel Facer Date: 11/30/2020 17:09:15 Dictated By: JASON SLAUGHTER MD [facility]
[~2020-12-16] VITALS: Ht 165 cm; Wt 143.5 kg
[~2020-12-16] MED LIST changes: +LACTATED RINGERS 1,000 ML IV ONE; +LACTATED RINGERS 1,000 ML IV STA; +LIDOCAINE JELLY 2% 6 ML SYRINGE MM PRN; +MIDAZOLAM 2 MG/2 ML (VERSED) VIAL ONE; +MULT-1136 PO; +PROPOFOL INJECTION 50 ML IV ONE; +proPOfol 200 MG/20 ML (DIPRIVAN) VIAL IV ONE
[2020-12-16 07:41] VITALS: BP 158/97
--- NOTE | 2020-12-16 07:54 | Pre-Op Note & Conscious Sedat ---
Pre-Operative Progress Note H&P Reviewed The H&P was reviewed, patient examined and no changes noted. Date H&P Reviewed: December 16, 2020 Time H&P Reviewed: 07:45 Conscious Sedation Pre-Proced ASA Score 2 For ASA 3 and 4: Consider anesthesia and medical clearance. Also, for patients with a history of failed moderate sedation consider anesthesia. Airway Lungs Heart ASA score ASA 1: a normal healthy patient ASA 2: a patient with a mild systemic disease (mid diabetes, controlled hypertension, obesity ASA 3: a patient with a severe systemic disease that limits activity (angina, COPD, prior Myocardial infarction) ASA 4: a patient with an incapacitating disease that is a constant threat to life (CHF, renal failure) ASA 5: a moribund patient not expected to survive 24 hrs. (ruptured aneurysm) ASA 6: a declared brain- patient whose organs are being harvested. For emergent operations, add the letter E after the classification Mallampati Classification Grade 2 Sedation Plan Analgesia, Amnesia, Plan communicated to team members, Discussed options with patient/fam, Discussed risks with patient/fam The patient is an appropriate candidate to undergo the planned procedure, sedation, and anesthesia. The patient immediately re-assessed prior to indication. JASON SLAUGHTER MD December 16, 2020 07:54
[2020-12-16 08:20] VITALS: BP 136/71
[2020-12-16 08:25] VITALS: BP 152/87
--- NOTE | 2020-12-16 08:39 | Anesthesia-General Post-Op ---
MAC Patient Condition Mental Status/LOC: Same as Preop Cardiovascular: Satisfactory Nausea/Vomiting: Absent Respiratory: Satisfactory Pain: Controlled Complications: Absent Post Op Complications Complications None Follow Up Care/Instructions Patient Instructions None needed. Anesthesiology Discharge Order Discharge Order Patient is doing well, no complaints, stable vital signs, no apparent adverse anesthesia problems. No complications reported per nursing. TIFFANIE GAGE CRNA December 16, 2020 08:39
[2020-12-16 08:45] VITALS: BP 135/97
[2020-12-16 08:55] VITALS: BP 135/97
--- NOTE | 2020-12-16 09:07 | OPERATIVE REPORT ---
DATE OF SERVICE: COLONOSCOPY SUMMARY INDICATION FOR THE PROCEDURE: Screening colonoscopy. DESCRIPTION OF PROCEDURE: The patient was placed in the left lateral decubitus position. Prior to undergoing colonoscopy, digital rectal evaluation was performed. Anal sphincter tone was normal and the perianal reflexes intact. Digital evaluation was compatible with an anterior rectocele. No stool pocketing was noted. The patient denies any symptoms to suggest that it is symptomatic. No evidence for internal or external hemorrhoids were noted. No other digital abnormalities were noted. The colonoscope was then inserted into the rectum and under direct visualization advanced to cecum. The cecum was identified by identification of the ileocecal valve and cecal strap as well as appendiceal orifice. Photographic documentation was obtained. Quality of prep was good. FINDINGS: There was no evidence for internal or external hemorrhoids. The rectum was unremarkable. Present at the rectosigmoid junction was a diminutive 2 mm sessile polyp. It was biopsied and ablated and submitted for histopathology with no subsequent blood loss. A few small sigmoid diverticulum were present without evidence for diverticulitis. No other sigmoid colonic abnormalities were appreciated. The descending colon, splenic flexure, transverse colon, hepatic flexure, ascending colon and cecum were unremarkable. ASSESSMENT AND PLAN: One diminutive polyp was removed from the rectosigmoid junction with no other evidence for neoplasia on today's procedure. As long as there are no surprises on histopathology report considering family history of colorectal cancer in first-degree relative, would advocate consideration for repeat surveillance colonoscopy in 5 years. I thank you for the referral of this pleasant lady. Job ID: [id number] DocumentID: [id number] Dictated Date: 12/16/2020 08:21:42 Manager Biostatistics Date: 12/16/2020 09:07:00 Dictated By: JASON SLAUGHTER MD
== END ==
LOC: ENDO 07:11
PROVIDERS: ATTEND Internal Medicine
DX: Z12.11 Encounter for screening for malignant neoplasm of colon (principal); K63.5 Polyp of colon; K57.30 Diverticulosis of large intestine without perforation or abscess without bleeding; I10 Essential (primary) hypertension; K21.9 Gastro-esophageal reflux disease without esophagitis; Z79.899 Other long term (current) drug therapy; Z87.891 Personal history of nicotine dependence
CPT/HCPCS: 84703; 88305

== ENCOUNTER → 2021-03-21 | Outpatient (CLI) | payer BC ==
[~2021-03-21] MED LIST changes: -LACTATED RINGERS 1,000 ML IV ONE; -LACTATED RINGERS 1,000 ML IV STA; -LIDOCAINE JELLY 2% 6 ML SYRINGE MM PRN; -MIDAZOLAM 2 MG/2 ML (VERSED) VIAL ONE; -PROPOFOL INJECTION 50 ML IV ONE; -proPOfol 200 MG/20 ML (DIPRIVAN) VIAL IV ONE
--- NOTE | 2021-03-21 14:21 | Diagnostic Imaging Report ---
INDICATION: Routine screening. COMPARISON: 02/02/2020 and 12/17/2018. TECHNIQUE: 2D and 3D bilateral screening mammography was performed with CAD. FINDINGS: Scattered fibroglandular densities are identified bilaterally. The parenchymal pattern is stable. No mass or malignant-appearing microcalcifications are seen. The axillae are unremarkable. IMPRESSION: No mammographic features suspicious for malignancy are identified. ACR BI-RADS Category 1: Negative. Result letter will be mailed to the patient. Note: At least 10% of breast cancer is not imaged by mammography. Dictated by: Dictated on workstation # [id number]
== END ==
LOC: RAD 08:15
PROVIDERS: ATTEND Obstetrics & Gynecology
DX: Z12.31 Encounter for screening mammogram for malignant neoplasm of breast (principal)
CPT/HCPCS: 77063; 77067

== ENCOUNTER → 2022-05-23 | Outpatient (CLI) | payer BC ==
[~2022-05-23] MED LIST changes: +CYCL10TA25 PO; -CYCL10TA9 PO
--- NOTE | 2022-05-23 16:10 | Diagnostic Imaging Report ---
PROCEDURE: Pelvic comp/transvaginal sonogram. TECHNIQUE: Complete transabdominal and transvaginal pelvic ultrasound was performed. In addition, limited pelvic Doppler was performed. INDICATION: Uterus is anteverted measuring 7.7 x 5.2 x 6.3 cm. Endometrium is 6 mm in thickness. There is a probable fibroid in the anterior fundal region measuring 3.9 x 2.4 x 3.7 cm. The right ovary measures 3.2 x 2.1 x 2.6 cm, and the left ovary measures 3.4 x 1.7 x 1.9 m. The left ovary contains a probable hemorrhagic cyst, approximately 13 mm in size. The right ovary was difficult to visualize due to patient body habitus. There is blood flow to the left ovary. There was difficulty obtaining blood flow to the right ovary. No free fluid is seen. IMPRESSION: 1. Uterine fibroid. 2. Probable 13 mm hemorrhagic left ovarian cyst. No other significant abnormality is detected. Dictated by: Dictated on workstation # [id number]
== END ==
LOC: RAD 14:57
PROVIDERS: ATTEND Nurse Practitioner Women's Health
DX: D25.9 Leiomyoma of uterus, unspecified (principal)
CPT/HCPCS: 76830; 76856

== ENCOUNTER 2022-07-16 05:33 | Outpatient (CLI) | payer BC ==
[~2022-07-16] VITALS: Ht 165 cm; Wt 140.2 kg
[2022-07-17] MEDS ORDERED: LOSA50TA63 PO (12:52)
== END 2022-07-17 13:02 | disposition home or self-care (01) ==
LOC: PREOP 05:33
PROVIDERS: ATTEND Obstetrics & Gynecology
DX: Z01.818 Encounter for other preprocedural examination (principal)

== ENCOUNTER 2022-07-23 07:59 | Day surgery (SDC) | payer BC ==
[~2022-07-23] VITALS: Ht 165 cm; Wt 140.2 kg
[2022-07-23] VITALS (11 sets, daily range): BP systolic 109–142; BP diastolic 74–91
[~2022-07-23 07:59] MED LIST changes: +LOSA50TA63 PO
[2022-07-23] MEDS ORDERED: LACTATED RINGERS 1,000 ML IV PRN (08:15)
[2022-07-23] MEDS ORDERED: ONDANSETRON 4 MG/2 ML (SDV) Z0FRAN ONE (09:06)
[2022-07-23] MEDS ORDERED: SEVOFLURANE (ULTANE) 15 ML INHAL SOLN ONE ×2 (09:06→10:24)
[2022-07-23] MEDS ORDERED: LIDOCAINE PF 2% 5 ML (XYLOCAINE) VIAL ONE (09:06)
[2022-07-23] MEDS ORDERED: fentaNYL INJ 100 MCG/2 ML AMP ONE (09:06)
[2022-07-23] MEDS ORDERED: MIDAZOLAM 2 MG/2 ML (VERSED) VIAL ONE (09:06)
[2022-07-23] MEDS ORDERED: proPOfol 200 MG/20 ML (DIPRIVAN) VIAL IV ONE ×3 (09:06→10:23)
--- NOTE | 2022-07-23 09:13 | Progress Note-Pre Operative ---
Pre-Operative Progress Note Date of Available H&P: Jul 23, 2022 Date H&P Reviewed: Jul 23, 2022 Time H&P Reviewed: 09:00 History & Physical: H&P Reviewed, Patient Examed, No changes noted Pre-Operative Diagnosis: STORMY ALARCON DO Jul 23, 2022 09:13
--- NOTE | 2022-07-23 09:14 | Discharge Inst-Women's Service ---
Discharge Inst-Women's Serv Depart Medication/Instructions New, Converted or Re-Newed RX: Other (patient take own meds) Problems Reviewed?: Yes Consults/Follow Up Additional Follow Up: Yes Orders/Referrals Dr. Demarco in1-2 weeks Activity Activity: Activity as Tolerated Driving Instructions: No Driving for 1 Week NO SMOKING: NO SMOKING Nothing Inside Vagina: No Douching, No [place], No Tampons Diet Discharge Diet: No Restrictions Symptoms to Report to : Bleeding Excessive, Pain Increased, Fever Over 101 Degrees F, Vaginal Bleeding Increase, Questions/Concerns STORMY DEMARCO DO Jul 23, 2022 09:14
[2022-07-23] MEDS ORDERED: KETOROLAC 30 MG/ML VIAL IVP ONE (09:15)
[2022-07-23] MEDS ORDERED: D5 LR IV SOLUTION 1,000 ML IV SCH (09:15)
[2022-07-23] MEDS ORDERED: ONDANSETRON 4 MG/2 ML (SDV) Z0FRAN IVP PRN ×2 (09:15→10:30)
[2022-07-23] MEDS ORDERED: BUPIVACAINE 0.25% 30 ML (SENSORCAINE) VIAL ONE (09:38)
[2022-07-23] MEDS ORDERED: BUPIVACAINE 0.25% 30 ML (SENSORCAINE) VIAL INJ ONE (10:13)
[2022-07-23] MEDS ORDERED: fentaNYL INJ 100 MCG/2 ML AMP IVP ONE (10:30)
--- NOTE | 2022-07-23 10:31 | Anesthesia-General Post-Op ---
General Patient Condition Mental Status/LOC: Same as Preop Cardiovascular: Satisfactory Nausea/Vomiting: Absent Respiratory: Satisfactory Pain: Controlled Complications: Absent Post Op Complications Complications None Follow Up Care/Instructions Patient Instructions None needed. Anesthesia/Patient Condition Patient Condition Patient is doing well, no complaints, stable vital signs, no apparent adverse anesthesia problems. No complications reported per nursing. YOKASTA MINOR CRNA Jul 23, 2022 10:31
--- NOTE | 2022-07-23 18:39 | OPERATIVE REPORT ---
DATE OF SERVICE: 07/23/2022 PREOPERATIVE DIAGNOSIS: A 52-year-old female with postmenopausal bleeding. POSTOPERATIVE DIAGNOSES: A 52-year-old female with postmenopausal bleeding. PROCEDURE PERFORMED: D and C. SURGEON: Stormy Demarco DO. ANESTHESIA: LMA. ESTIMATED BLOOD LOSS: Minimal. URINE OUTPUT: 50 mL drained at the end of the procedure. FLUIDS: 800 mL lactated Ringer's solution. FINDINGS: Grossly normal-appearing external female genitalia, grossly normal-appearing uterus and cervix, small to moderate amount of endometrial curettings collected. SPECIMEN SENT: Endometrial curettings. INDICATIONS FOR PROCEDURE: This 52-year-old female is a patient, who sought care in my office for what appeared to be postmenopausal bleeding. The patient had been without menses for a couple of years and came in with some heavy bleeding that was irregular. Ultrasound was ordered, which showed a slightly thickened endometrium. Due to this, we discussed endometrial sampling due to her age and body habitus. The risks of the procedure were discussed with the patient in detail versus perform an endometrial biopsy in the office. The patient wished to proceed with a D and C for potential curative properties of the procedure. After all of her questions were answered, consent was obtained. DESCRIPTION OF PROCEDURE: The patient was taken to the operating room. Once in the operating room, general anesthesia was found to be adequate, she was placed in dorsal lithotomy position, prepped and draped in a normal sterile fashion, where a time-out was performed. The bladder was then drained using a straight catheterization. A weighted speculum was inserted to the patient's vagina. A right angle retractor was used to visualize the cervix, which was grasped at 12 o'clock position using a long Allis clamp. I then performed a paracervical block at 3 and 9 o'clock positions on the cervix. Care was taken to aspirate before injecting, 8 mL of 0.25% Marcaine were injected in each site. I then gently sounded uterine cavity, was found to be 8 cm. I then gently dilated the cervix using Hanks dilators to maximum dilatation of approximately 1 cm, at which point, I performed a gentle endometrial curettage of all endometrial surfaces until a slight uterine cry was appreciated. All the tissue was collected and sent as endometrial curettings after which there was no active bleeding from the cervix itself. Instruments were removed from the patient's vagina. The patient tolerated the procedure well and was taken to recovery area in stable condition. Lap and sponge counts were correct at the end of the procedure. Instrument counts correct as well. Job ID: [id number] DocumentID: [id number] Dictated Date: 07/23/2022 11:46:46 Aerospace Engineer Officer Armament Date: 07/23/2022 18:38:00 Dictated By: STORMY DEMARCO DO
== END 2022-07-23 12:30 | disposition home or self-care (01) ==
LOC: SDC 07:59
PROVIDERS: ATTEND Obstetrics & Gynecology
DX: N85.8 Other specified noninflammatory disorders of uterus (principal); N83.202 Unspecified ovarian cyst, left side; E66.01 Morbid (severe) obesity due to excess calories; Z68.43 Body mass index [BMI] 50.0-59.9, adult; Z87.891 Personal history of nicotine dependence; Z80.41 Family history of malignant neoplasm of ovary
CPT/HCPCS: 84703; 87081; 88305

== ENCOUNTER → 2022-08-16 | Outpatient (CLI) | payer BC ==
--- NOTE | 2022-08-16 11:54 | Diagnostic Imaging Report ---
INDICATION: Routine screening. Comparison is made with prior mammogram from 03/21/2021 and 02/02/2020. 2-D and 3-D bilateral screening mammography was performed with CAD. CAD is utilized. The current study was also evaluated with a Computer Aided Detection (CAD) system. Scattered fibroglandular densities are identified bilaterally. The parenchymal pattern is stable. No spiculated mass or malignant-appearing microcalcifications are seen. Axillae are unremarkable. IMPRESSION: BI-RADS Category 1 No mammographic features suspicious for malignancy are identified. ACR BI-RADS Category 1: Negative. Result letter will be mailed to the patient. Note: At least 10% of breast cancer is not imaged by mammography. Dictated by: Dictated on workstation # [id number]
== END ==
LOC: RAD 07:30
PROVIDERS: ATTEND Obstetrics & Gynecology
DX: Z12.31 Encounter for screening mammogram for malignant neoplasm of breast (principal)
CPT/HCPCS: 77063; 77067

== ENCOUNTER → 2022-10-17 | Outpatient (CLI) | payer BC ==
[2022-10-17 16:33] LABS: HEMATOCRIT 39 % (35-52); HEMOGLOBIN 12.9 g/dL (11.5-16.0); MEAN CORPUSCULAR HEMOGLOBIN 30 pg (25-34); MEAN CORPUSCULAR HGB CONC 33 g/dL (32-36); MEAN CORPUSCULAR VOLUME 93 fL (80-99); MEAN PLATELET VOLUME 10.6 fL (9.0-12.2); PLATELET COUNT 238 10^3/uL (130-400); WHITE BLOOD COUNT 11.3 10^3/uL (4.3-11.0)
[2022-10-17 16:53] LABS: ALBUMIN 3.8 GM/DL (3.2-4.5)
[2022-10-17 16:54] LABS: POTASSIUM 4.2 MMOL/L (3.6-5.0)
[2022-10-17 16:55] LABS: CALCIUM 9.2 MG/DL (8.5-10.1)
[2022-10-17 16:56] LABS: TOTAL PROTEIN 7.3 GM/DL (6.4-8.2)
[2022-10-17 16:58] LABS: BILIRUBIN,TOTAL 0.4 MG/DL (0.1-1.0)
[2022-10-17 16:59] LABS: CREATININE SERUM 0.71 MG/DL (0.60-1.30)
--- NOTE | 2022-10-17 17:27 | Diagnostic Imaging Report ---
EXAMINATION: Abdomen, one view. HISTORY: Right upper quadrant pain. COMPARISON: None available. FINDINGS: There has been a lumbar spine fusion. No dilated bowel. No free air. There is overall a paucity of bowel gas. IMPRESSION: 1. No dilated air-filled loops of bowel. Dictated by: Dictated on workstation # [id number]
--- NOTE | 2022-10-17 17:57 | Diagnostic Imaging Report ---
INDICATION: Right-sided pain. FINDINGS: Five-view right rib series shows no displacement or appreciable rib fracture deformity, hemothorax or pneumothorax. No focal pleural hematoma. The right diaphragm is well visualized. No free air beneath the diaphragm. IMPRESSION: Unremarkable right rib series. Dictated by: Dictated on workstation # [id number]
--- NOTE | 2022-10-17 18:23 | Diagnostic Imaging Report ---
Indication: Right upper quadrant pain. Thoracic vertebral statures are normal, their alignment is anatomic. Lumbar posterior instrumentation partially visualized. There is anterior thoracic endplate osteophytes and degenerative disc space narrowing throughout but no fracture, compression deformity or other acute-appearing abnormalities found. Impression: Degenerative changes aligned anatomically with no thoracic spinal fracture or traumatic malalignment apparent. Dictated by: Dictated on workstation # [id number]
== END ==
LOC: RAD 16:11
PROVIDERS: ATTEND Nurse Practitioner Family
DX: M51.34 Other intervertebral disc degeneration, thoracic region (principal); R10.11 Right upper quadrant pain
CPT/HCPCS: 36415; 71100; 72072; 74018; 80053; 82150; 83690; 85027

== ENCOUNTER 2022-10-23 05:29 | Outpatient (CLI) | payer BC ==
[~2022-10-23] VITALS: Ht 165.1 cm; Wt 129.5 kg
[2022-10-23] MEDS ORDERED: MAGN200T PO (12:31)
== END 2022-10-23 13:03 | disposition home or self-care (01) ==
LOC: PREOP 05:29
PROVIDERS: ATTEND Obstetrics & Gynecology
DX: Z01.818 Encounter for other preprocedural examination (principal)

== ENCOUNTER 2022-10-30 05:58 | Day surgery (SDC) | payer BC ==
[2022-10-30] VITALS (12 sets, daily range): BP systolic 84–134; BP diastolic 52–90
[~2022-10-30] VITALS: Ht 165.1 cm; Wt 129.5 kg
[~2022-10-30 05:58] MED LIST changes: +MAGN200T PO
[2022-10-30] MEDS ORDERED: ceFAZolin INJECTION 2,000 MG in NS (IVPB) 50 ML IV ONE (06:15)
[2022-10-30] MEDS ORDERED: metroNIDAZOLE 500MG/100ML IVPB 100 ML IV ONE (06:15)
[2022-10-30] MEDS ORDERED: BUP/EPI 0.25% 1:200,000 (MARCAINE) 30 ML VIAL ONE (06:32)
[2022-10-30] MEDS: LACTATED RINGERS 1,000 ML IV PRN ×3 (06:33→08:43)
[2022-10-30] MEDS ORDERED: BUPIVACAINE 0.25% 30 ML (SENSORCAINE) VIAL ONE (06:44)
[2022-10-30 06:51] LABS: BASOPHILS % (AUTO) 1 % (0-10); EOSINOPHILS # (AUTO) 0.3 10^3/uL (0.0-0.3); EOSINOPHILS % (AUTO) 4 % (0-10); HEMATOCRIT 39 % (35-52); HEMOGLOBIN 12.8 g/dL (11.5-16.0); LYMPHOCYTES % (AUTO) 22 % (12-44); MEAN CORPUSCULAR HEMOGLOBIN 30 pg (25-34); MEAN CORPUSCULAR HGB CONC 33 g/dL (32-36); MEAN CORPUSCULAR VOLUME 92 fL (80-99); MEAN PLATELET VOLUME 10.5 fL (9.0-12.2); MONOCYTES # (AUTO) 0.4 10^3/uL (0.0-1.0); MONOCYTES % (AUTO) 4 % (0-12); NEUTROPHILS % (AUTO) 69 % (42-75); PLATELET COUNT 218 10^3/uL (130-400); WHITE BLOOD COUNT 8.7 10^3/uL (4.3-11.0)
[2022-10-30] MEDS ORDERED: BUPIVACAINE 0.25% 30 ML (SENSORCAINE) VIAL INJ ONE (06:52)
[2022-10-30] MEDS ORDERED: FAMOTIDINE 20MG/2ML IV (PEPCID) IV ONE (07:00)
[2022-10-30] MEDS ORDERED: ONDANSETRON 4 MG/2 ML (SDV) Z0FRAN IV ONE (07:00)
[2022-10-30] MEDS ORDERED: fentaNYL INJ 100 MCG/2 ML AMP ONE (07:03)
[2022-10-30] MEDS ORDERED: ROCURONIUM 50 MG/5 ML (ZEMURON) VIAL IV ONE (07:03)
[2022-10-30] MEDS ORDERED: LIDOCAINE PF 2% 5 ML (XYLOCAINE) VIAL ONE (07:03)
[2022-10-30] MEDS ORDERED: ONDANSETRON 4 MG/2 ML (SDV) Z0FRAN ONE (07:03)
[2022-10-30] MEDS ORDERED: proPOfol 200 MG/20 ML (DIPRIVAN) VIAL IV ONE (07:03)
[2022-10-30] MEDS ORDERED: MIDAZOLAM 2 MG/2 ML (VERSED) VIAL ONE (07:03)
[2022-10-30] MEDS ORDERED: NEOSTIGMINE (BLOXIVERZ ) 1 MG/1ML 10 ML VIAL ONE (08:42)
[2022-10-30] MEDS ORDERED: GLYCOPYRROLATE 0.2 MG/ML (ROBINUL) 2 ML VIAL ONE (08:42)
[2022-10-30] MEDS ORDERED: SEVOFLURANE (ULTANE) 15 ML INHAL SOLN ONE (09:05)
[2022-10-30] MEDS ORDERED: KETOROLAC 30 MG/ML VIAL ONE (09:11)
[2022-10-30] MEDS ORDERED: MEPERIDINE (DEMEROL) INJ 50 MG/ML IVP ONE (09:15)
[2022-10-30] MEDS ORDERED: PROMETHAZINE INJ 25 MG/ML (PHENERGAN) AMP IVP ONE (09:15)
[2022-10-30] MEDS ORDERED: morphine INJ 10 MG/ML 1ML (SYR OR VIAL) IVP ONE (09:15)
[2022-10-30] MEDS ORDERED: HYDROmorphone 2 MG/ML VIAL (DILAUDID) IV ONE (09:15)
[2022-10-30] MEDS ORDERED: KETOROLAC 30 MG/ML VIAL IVP ONE (09:15)
[2022-10-30] MEDS ORDERED: ONDANSETRON 4 MG/2 ML (SDV) Z0FRAN IVP PRN (09:15)
--- NOTE | 2022-10-30 09:18 | Progress Note-Pre Operative ---
Pre-Operative Progress Note Date of Available H&P: Oct 30, 2022 Date H&P Reviewed: Oct 30, 2022 Time H&P Reviewed: 07:15 History & Physical: H&P Reviewed, Patient Examed, No changes noted Pre-Operative Diagnosis: 52 yo female with AUB, Dyssmenorrhea, CPP, BMI>45 STORMY DEMARCO DO Oct 30, 2022 09:18
--- NOTE | 2022-10-30 09:22 | Discharge Inst-Women's Service ---
Discharge Inst-Women's Serv Depart Medication/Instructions New, Converted or Re-Newed RX: Transmitted to Pharmacy Problems Reviewed?: Yes Consults/Follow Up Additional Follow Up: Yes Orders/Referrals Dr. Adams/Jasmyne in 7-10 days and in 8 weeks Activity Activity: Activity as Tolerated Driving Instructions: No Driving for 1 Week NO SMOKING: NO SMOKING Nothing Inside Vagina: No Douching, No [place], No Tampons Diet Discharge Diet: No Restrictions Symptoms to Report to : Bleeding Excessive, Pain Increased, Fever Over 101 Degrees F, Vaginal Bleeding Increase, Questions/Concerns For Any Problems or Questions: Contact Your Physician Skin/Wound Care Infection Signs and Symptoms: Increased Redness, Foul Odor of Wound, Increased Drainage, Skin Itchy or Has a Rash, Increased Swelling, Temperature Above 101 F Operative Area Clean and Dry: Keep Incision Clean/Dry Stitches/Geraldine/Dermabond: Dermabond, Care of Stitches Bathing Instructions: STORMY Flowers DO Oct 30, 2022 09:22
[2022-10-30] MEDS ORDERED: OXYC1TAB87 PO (09:27)
[2022-10-30] MEDS ORDERED: IBUP-844 PO (09:27)
[2022-10-30] MEDS ORDERED: SIME80TA16 PO (09:27)
[2022-10-30] MEDS ORDERED: DOCU100C37 PO (09:27)
[2022-10-30] MEDS ORDERED: morphine INJ 10 MG/ML 1ML (SYR OR VIAL) ONE (09:29)
[2022-10-30] MEDS ORDERED: BENZOCAINE LOZENGES 1 EACH LOZENGE MM PRN (09:30)
[2022-10-30] MEDS ORDERED: HYDROmorphone 2 MG/ML VIAL (DILAUDID) IV PRN (09:30)
[2022-10-30] MEDS ORDERED: ONDANSETRON 4 MG/2 ML (SDV) Z0FRAN IV PRN (09:30)
[2022-10-30] MEDS ORDERED: oxyCODONE/APAP 5/325MG (PERCOCET 5) TABLET PO PRN (09:30)
[2022-10-30] MEDS ORDERED: ANTACID SUSP 30 ML UDC (MYLANTA) PO PRN (09:30)
[2022-10-30] MEDS ORDERED: LACTATED RINGERS 1,000 ML IV SCH (09:30)
[2022-10-30] MEDS ORDERED: IBUPROFEN 600 MG (MOTRIN) TAB PO PRN (09:30)
[2022-10-30] MEDS ORDERED: DOCUSATE SODIUM 100 MG (COLACE) CAP PO PRN (09:30)
[2022-10-30] MEDS ORDERED: SIMETHICONE 80 MG (MYLICON) CHEW PO PRN (09:30)
[2022-10-30] MEDS ORDERED: ZOLPIDEM 5 MG (AMBIEN) TAB PO PRN (09:30)
[2022-10-30] MEDS ORDERED: KETOROLAC 30 MG/ML VIAL IVP PRN (09:30)
--- NOTE | 2022-10-30 15:41 | OPERATIVE REPORT ---
DATE OF SERVICE: 10/30/2022 PREOPERATIVE DIAGNOSES: 1. A 52-year-old female with abnormal uterine bleeding. 2. Menorrhagia. 3. Dysmenorrhea. 4. BMI greater than 45. POSTOPERATIVE DIAGNOSES: 1. A 52-year-old female with abnormal uterine bleeding. 2. Menorrhagia. 3. Dysmenorrhea. 4. BMI greater than 45. PROCEDURE: Robotic-assisted total laparoscopic hysterectomy, bilateral salpingo-oophorectomy. SURGEON: Munir Adams DO MICROFILM MACHINE OPERATOR: Jasmyne Sheikh DNP was necessary for manipulation and retraction throughout the procedure. ANESTHESIA: General endotracheal. ESTIMATED BLOOD LOSS: Minimal. URINE OUTPUT: 100 mL clear at the end of the procedure. FLUIDS: 2500 mL lactated Ringer's solution. FINDINGS: Slightly bulky and hyperemic appearing uterus, filmy adhesions of the large bowel to the left round ligament as well as adhesions of the right sided large bowel to the infundibulopelvic ligament. SPECIMEN SENT: Uterus, bilateral fallopian tubes and ovaries. INDICATIONS FOR PROCEDURE: This is a 52-year-old female patient who had sought care in my office for concerns with abnormal uterine bleeding. She had undergone endometrial sampling twice, both in the form of D and C in the past year. Her bleeding continued to worsen and cause issues, both at work and with her private life. Due to continued ongoing issues with her bleeding as well as a fibroid, which appeared on ultrasound suspected fibroid. We discussed proceeding with more definitive management measures for her ongoing issues in the form of hysterectomy. Risks of the procedure were discussed with the patient in detail including risk of bleeding, infection, damage to surrounding structures including but not limited to bowel, bladder, ureter, kidneys, possible need for reoperation, postoperative complications that may occur, recovery timeframe, risk from anesthesia and even as well as potential need for hormone replacement therapy and the risks involved in that. After everything was discussed with the patient in detail, consent was obtained, the patient was taken to the operating room. OPERATIVE REPORT IN DETAIL: Once in the operating room, general anesthesia was adequate. She was placed in the dorsal lithotomy position, prepped and draped in sterile fashion. Timeout was performed. A Torres catheter was placed using sterile technique. A weighted speculum inserted to the patient's vagina, which allows me to visualize the cervix, which was grasped at 12 o'clock position using a 0 Vicryl suture. The anterior lip of the cervix. A suture was then used as my retraction. I then gently sound the uterine cavity depth was found to be 8 cm. I selected an 8 cm SHEBA uterine manipulator and a 3.5 cm colpotomy ring. The manipulator tip was advanced into the uterus with the balloons deployed and the colpotomy ring was advanced around the vaginal fornix, after which bimanual manipulation is appreciated on exam. I removed all the instruments from the patient's vagina, performed change of gloves. I turned my attention to the abdomen where subcostally at the midclavicular line, I introduced the Veress needle through the skin until intraperitoneal placement was confirmed using a saline drop test and an opening pressure of 8 mmHg was noted. I proceeded to max pressure of 15 mmHg using CO2 gas, at which point, I make an infraumbilical incision with a knife and direct 8 mm blunt laparoscopic da Sheila camera trocar through the incision to ensure proper placement was confirmed using da Sheila laparoscope. There was no evidence of damage from entry site. There is no evidence of damage from the Veress entry site and the Veress needle was removed at that point. I then had the patient placed in steep Trendelenburg. However, limited in Trendelenburg due to the patient's body habitus 22 degrees. I placed lateral trocars. These are both 8 mm trocars approximately 8 cm lateral to my infraumbilical trocar. Both these trocars were placed under direct visualization of laparoscope. Once both these trocars were in place, I bring in the da Sheila robot and docked in appropriate fashion, placed the SynchroSeal device in the left and monopolar nicolette in the right hand. I performed the following dissection bilaterally starting at the infundibulopelvic ligament, I have to identify these. In doing so, I had to take down filmy adhesions of the bowel on both sides of the adnexa. Once these filmy bleeding were down, I grasped the infundibulopelvic ligament, which I sealed and transected using the SynchroSeal device. I then grasped the round ligament, which I sealed and transected using the SynchroSeal device. I then grasp the entire broad ligament, which I sealed and transected using the SynchroSeal device and taken down to the lower uterine segment, at which point I the anterior and posterior leaves of the broad ligament, anterior leaf was taken around the anterior vaginal fornix. Posterior leaf dissection was taken around the posterior vaginal fornix. This allows me to skeletonize the uterine vessels laterally, which I sealed and transected using the SynchroSeal device. In this entire process of doing this, I am able to identify the ureters and steer clear of them during my dissection. I then created a colpotomy at 12 o'clock position using monopolar nicolette and took this circumferentially around the vaginal fornix amputating the cervix away from the vagina. The entire specimen was then removed through the vagina. I then closed the vaginal cuff using 2-0 V-Loc in a running fashion, after which there was active bleeding noted from any of my dissection planes. I undocked da Sheila robot and proceeded with remainder of the case laparoscopically. I copiously irrigated the pelvis using normal saline. Once again, there was no active bleeding noted from any of my dissection planes. I placed Surgiflo hemostatic agent over all my planes of dissection to ensure excellent postoperative hemostasis. I then have the patient taken out of steep Trendelenburg. I removed the lateral trocars under direct visualization of laparoscope. The infraumbilical trocars left in place to release the remainder of insufflation and introduced 10 mL of 0.25% Marcaine in peritoneal cavity for postoperative pain management. I then removed this trocar as well. Torres catheter was left in place. The skin was reapproximated using 4-0 Monocryl and interrupted subcuticular stitches. Dermabond was applied to incision. A bandage was placed over the incisions as well. Two grams of Ancef and 500 mg of Flagyl were given preoperatively for infection prophylaxis. Job ID: [id number] DocumentID: [id number] Dictated Date: 10/30/2022 09:45:54 Traffic Rate Analyst Date: 10/30/2022 15:38:00 Dictated By: DO SANDY AKINS
--- NOTE | 2022-10-31 07:39 | Anesthesia-General Post-Op ---
General Patient Condition Mental Status/LOC: Same as Preop Cardiovascular: Satisfactory Nausea/Vomiting: Absent Respiratory: Satisfactory Pain: Controlled Complications: Absent Post Op Complications Complications None Follow Up Care/Instructions Patient Instructions None needed. Anesthesia/Patient Condition Patient Condition Patient is doing well, no complaints, stable vital signs, no apparent adverse anesthesia problems. No complications reported per nursing. ANTONELLA GALE CRNA Oct 31, 2022 07:39
== END 2022-10-30 18:00 | disposition home or self-care (01) ==
LOC: SDC 05:58 → WS 10:04 → SDC 18:00
PROVIDERS: ATTEND Obstetrics & Gynecology
DX: N80.03 Adenomyosis of the uterus (principal); N83.02 Follicular cyst of left ovary; N94.89 Other specified conditions associated with female genital organs and menstrual cycle; N93.9 Abnormal uterine and vaginal bleeding, unspecified; N92.0 Excessive and frequent menstruation with regular cycle; N73.6 Female pelvic peritoneal adhesions (postinfective); G47.33 Obstructive sleep apnea (adult) (pediatric); E66.01 Morbid (severe) obesity due to excess calories; N94.5 Secondary dysmenorrhea; Z87.891 Personal history of nicotine dependence; Z68.42 Body mass index [BMI] 45.0-49.9, adult
CPT/HCPCS: 36415; 84703; 85025; 86850; 86900; 86901; 87081; 88307; 94664

== ENCOUNTER 2023-01-04 20:32 | Outpatient (CLI) | payer BC ==
[~2023-01-04 20:32] MED LIST changes: +DOCU100C37 PO; +IBUP-844 PO; +OXYC1TAB87 PO; +SIME80TA16 PO
== END 2023-01-05 06:48 | disposition home or self-care (01) ==
LOC: SLEEP 20:32
PROVIDERS: ATTEND Otolaryngology Otolaryngology/Facial Plastic Surgery
DX: G47.33 Obstructive sleep apnea (adult) (pediatric) (principal)
CPT/HCPCS: 95811

== ENCOUNTER → 2023-04-25 | Outpatient (CLI) | payer BC ==
--- NOTE | 2023-04-25 09:12 | Diagnostic Imaging Report ---
HISTORY: Pain in the right knee TECHNIQUE: 4 views of the right knee COMPARISON: None FINDINGS: No acute fracture is seen in the right knee. Alignment appears normal. There are moderate to severe degenerative changes in all 3 compartments. There is a small right knee joint effusion. IMPRESSION: 1. Moderate to severe degenerative changes in the right knee. Small joint effusion. Dictated by: Dictated on workstation # [id number]
== END ==
LOC: ORTHO 08:10
PROVIDERS: ATTEND Orthopaedic Surgery
DX: M17.11 Unilateral primary osteoarthritis, right knee (principal)
CPT/HCPCS: 20610; 73564; G0463; 99203